=== PATIENT | female | born 1980 | race Caucasian/White ===

== ENCOUNTER 2019-11-12 13:00 | Emergency (ER) | payer SELFPAY ==
[~2019-11-12] VITALS: Ht 157.5 cm; Wt 59.0 kg
[2019-11-12 13:21] VITALS: BP 120/73
[2019-11-12] MEDS ORDERED: METR-34 PO (15:10)
--- NOTE | 2019-11-12 15:10 | PHYS DOC ---
Past Medical History Past Medical History: No Pertinent History Past Surgical History: No Surgical History Smoking Status: Never Smoker Alcohol Use: None General Adult EDM: Chief Complaint: FOREIGN BODY VAGINA HPI: HPI: Patient is a 39 year old female who presents to the emergency department with complaints of a possible retained tampon in her vagina. Patient reports that she has had foul-smelling odor from her vagina for the last 10 days. She was seen at a [facility] and prescribed Flagyl for suspected bacterial vaginosis. She states that time she never had a pelvic exam but the provider also tested her urine for gonorrhea and chlamydia. Patient states that her gonorrhea and Chlamydia tests were negative. She denies any irregular vaginal discharge, pelvic pain, dysuria, hematuria, increased urinary frequency, back pain, ab dominal pain, nausea, vomiting, diarrhea, or fever. She currently denies any pain. Patient states that she has taken 7 doses of the Flagyl that was prescribed and she has 7 doses remaining. Review of Systems: Review of Systems: Constitutional: Denies fever or chills. [] GI: See HPI : Denies dysuria; see HPI. [] Musculoskeletal: Denies back pain Integument: Denies rash. [] Psychiatric: Denies depression or anxiety. [] Heart Score: Risk Factors: Risk Factors: DM, Current or recent (<one month) smoker, HTN, HLP, family history of CAD, obesity. Risk Scores: Score 0 - 3: 2.5% MACE over next 6 weeks - Discharge Home Score 4 - 6: 20.3% MACE over next 6 weeks - Admit for Clinical Observation Score 7 - 10: 72.7% MACE over next 6 weeks - Early Invasive Strategies Allergies: Allergies: Allergies Coded Allergies Type Severity Reaction Last Updated Verified Penicillins Allergy Unknown RASH 11/12/19 Yes Physical Exam: PE: Constitutional: Well developed, well nourished, no acute distress, non-toxic appearance. HENT: Normocephalic, atraumatic, bilateral external ears normal, nose normal. Eyes: PERRLA, EOMI, conjunctiva normal, no discharge. Neck: Normal range of motion, no stridor. Cardiovascular: Heart rate regular rhythm Lungs & Thorax: Respirations even and unlabored, no retractions, no respiratory distress Pelvic Exam: Primer Charger present Anastasiya SAUER Abdomen: Nontender, soft External Genitalia: Normal Skin Speculum: Normal vaginal mucosa, normal cervical discharge, retained tampon present in vaginal vault with foul odor Bimanual: Deferred Skin: Warm, dry, no erythema, no rash. Extremities: No cyanosis, ROM intact, no edema. Neurologic: Alert and oriented X 3, no focal deficits noted. Psychologic: Affect normal, judgement normal, mood normal. Current Patient Data: Labs: Microbiology 11/12/19 Wet Prep - Final, Complete Vital Signs: Vital Signs Date Time Temp Pulse Resp B/P (MAP) Pulse Ox O2 Delivery O2 Flow Rate FiO2 11/12/19 13:21 98.4 87 16 120/73 (89) 99 Room Air 98.4 EKG: EKG: [] Radiology/Procedures: Radiology/Procedures: [] Course & Med Decision Making: Course & Med Decision Making Pertinent Labs and Imaging studies reviewed. (See chart for details) Patient is a 39-year-old female who presents to the emergency department with complaints of a retained tampon in her vagina that she discovered this morning. Pelvic exam revealed a retained tampon in the vaginal vault, the tampon was removed by myself, scant vaginal discharge present. Wet mount revealed findings of bacterial vaginosis. [id number] with Dr. Quintero on the phone about the patient, I advised her that the patient had already taken 7 doses of Flagyl prior to the removal of the tampon. Per Dr. Quintero I will prescribe another 3 days of Flagyl for the patient to continue taking. And advised the patient to follow-up with her or the patient's own REGISTERED CLIENT ASSOCIATE if the symptoms persist. Prescription written for 6 tablets of Flagyl. Patient advised to follow-up as recommended by Dr. Quintero, return to the ER if fever develops or symptoms worsen. Patient verbalized an understanding of home care, medications, follow-up, and return to ED instructions and was in agreement with the plan of care. [] Dragon Disclaimer: Dragon Disclaimer: This electronic medical record was generated, in whole or in part, using a voice recognition dictation system. Departure Departure Impression: Primary Impression: Retained tampon Qualified Codes: T19.2XXA - Foreign body in vulva and vagina, initial encounter Additional Impression: Bacterial vaginosis Disposition: HOME, SELF-CARE Condition: STABLE Referrals: NO PCP (PCP) Patient Instructions: Bacterial Vaginosis, [id number], Vaginal Foreign Body, [id number] Additional Instructions: Fill the prescription and use it as directed. Follow-up with your REGISTERED CLIENT ASSOCIATE or Dr. Quintero's office for reevaluation in a week. Return to the ER if symptoms worsen. Scripts Metronidazole (METRONIDAZOLE) 500 Mg Tablet 1 TAB PO BID for 3 Days, #6 TAB 0 Refills Prov: KARMA YOO APRN 11/12/19 Justicifation of Admission Dx: Justifications for Admission: Justification of Admission Dx: N/A KARMA YOO [employer] Nov 12, 2019 15:10
== END 2019-11-12 15:15 | disposition home or self-care (01) ==
LOC: ER 13:00
DX: T19.2XXA Foreign body in vulva and vagina, initial encounter (principal); N76.0 Acute vaginitis; B96.89 Other specified bacterial agents as the cause of diseases classified elsewhere; Z88.0 Allergy status to penicillin; W45.8XXA Other foreign body or object entering through skin, initial encounter; Y93.89 Activity, other specified; Y92.89 Other specified places as the place of occurrence of the external cause; Y99.8 Other external cause status
CPT/HCPCS: 99284; Q0111